=== PATIENT | female | born 1960 | race Caucasian/White ===

== ENCOUNTER → 2017-05-12 | Outpatient (CLI) | payer OTHER ==
[~2017-05-12] MED LIST: ACET-1138 PO; ACET-24 PO; ALBUAER2 INH; AMX500 PO; ASCO10003 PO; CHOL1000 PO; CINN500T PO; CLOB-65 EXT; CLR10 PO; FLUT0.15 NAE; GEMF600T3 PO; GLYB5TAB8 PO; LEVO100T PO; LISI-725 PO; METF1000 PO; MULT-506 PO; OMEG5CAP PO; ONDA8TAB12 PO; OXYSR10 PO; PRAV10TA39 PO; RXC5 PO; XRL10 PO
== END | disposition home or self-care (01) ==
LOC: C.LAB 13:52
PROVIDERS: ATTEND Orthopaedic Surgery Sports Medicine
DX: Z22.322 Carrier or suspected carrier of Methicillin resistant Staphylococcus aureus (principal)

== ENCOUNTER → 2017-05-19 | Outpatient (CLI) | payer OTHER | END | disposition home or self-care (01) | LOC: C.LAB 11:15 | PROVIDERS: ATTEND Orthopaedic Surgery Sports Medicine | DX: Z22.322 Carrier or suspected carrier of Methicillin resistant Staphylococcus aureus (principal) ==

== ENCOUNTER 2017-06-22 06:57 | Inpatient (IN) | payer OTHER ==
[2017-05-06 14:16] VITALS: BMI 58.0
--- NOTE | 2017-05-06 14:51 | PAT Medication Instructions ---
Service Date May 06, 2017. Current Home Medication List Acetaminophen (Tylenol Extra Strength), 1,000 MG PO Q8 Albuterol (Ventolin Hfa), 2 PUFFS INH Q4 PRN for SOB/Wheezing Ascorbic Acid (Vitamin C), 1,000 MG PO QAM Cholecalciferol (Vitamin D3), 1 TAB PO BID Cinnamon (Cinnamon), 1,000 MG PO BID Clobetasol Propionate 0.05% (Temovate 0.05%), 1 APPLN EXT UD PRN for PRN Fluticasone Propionate (Nasal) (Flonase Allergy Relief), 2 SPRAY LUCIUS DAILY PRN for PRN Gemfibrozil (Lopid), 600 MG PO BID Glyburide (Micronase), 5 MG PO QPM Levothyroxine Sodium (Synthroid), 100 MCG PO QAM Lisinopril (Zestril), 20 MG PO HS Metformin Hcl (Glucophage), 1,000 MG PO BIDM Multivitamin (Multivitamin), 1 TAB PO QPM Pravastatin Sodium (Pravastatin Sodium), 10 MG PO HS Medication Instructions For Your Scheduled Surgery - Hold the following medications 2 weeks prior to surgery: Fish Oil Cinnamon (Cinnamon), 1,000 MG PO BID - Hold the following medications 48 hours prior to surgery: Metformin Hcl (Glucophage), 1,000 MG PO BIDM - Hold the following medications 24 hours prior to surgery: Lisinopril (Zestril), 20 MG PO HS Gemfibrozil (Lopid), 600 MG PO BID Clobetasol Propionate 0.05% (Temovate 0.05%), 1 APPLN EXT UD PRN for PRN - Hold the following medications the morning of surgery: Cholecalciferol (Vitamin D3), 1 TAB PO BID Ascorbic Acid (Vitamin C), 1,000 MG PO QAM - Take the following medications the morning of surgery with a sip of water OTHERWISE NOTHING TO EAT OR DRINK AFTER MIDNIGHT: Levothyroxine Sodium (Synthroid), 100 MCG PO QAM Fluticasone Propionate (Nasal) (Flonase Allergy Relief), 2 SPRAY LUCIUS DAILY PRN for PRN Acetaminophen (Tylenol Extra Strength), 1,000 MG PO Q8 (may take if needed up to 4 hours prior to surgery) Albuterol (Ventolin Hfa), 2 PUFFS INH Q4 PRN for SOB/Wheezing (use if needed; BRING TO HOSPITAL) - Take the following medications as scheduled the night before surgery: Multivitamin (Multivitamin), 1 TAB PO QPM Pravastatin Sodium (Pravastatin Sodium), 10 MG PO HS Glyburide (Micronase), 5 MG PO QPM Fluticasone Propionate (Nasal) (Flonase Allergy Relief), 2 SPRAY LUCIUS DAILY PRN for PRN Acetaminophen (Tylenol Extra Strength), 1,000 MG PO Q8 Cholecalciferol (Vitamin D3), 1 TAB PO BID Albuterol (Ventolin Hfa), 2 PUFFS INH Q4 PRN for SOB/Wheezing If you have any questions please call us at [phone] or [phone] or [phone]
--- NOTE | 2017-05-06 15:32 | DIAGNOSTIC IMAGING REPORT ---
CHEST PREADMISSION(PA/LAT) CLINICAL HISTORY: PAT preoperative evaluation COMPARISON STUDY: 02/13/2016 FINDINGS: The bones soft tissues and hemidiaphragms are normal. The cardiomediastinal silhouette is normal. The lungs are clear. The pulmonary vasculature is normal. IMPRESSION: Negative chest. Electronically signed by: Isak Villegas M.D. 05/06/2017 3:30 PM Dictated Date/Time: 05/06/2017 3:29 PM
[2017-05-06 16:01] LABS: BASO % 0.8 %; BASO ABS # 0.04 K/uL (0-0.2); COMPLETE YES; EOS % 5.7 %; HEMATOCRIT 35.7 % (37-47); LYMPH % 23.3 %; LYMPH ABS # 1.23 K/uL (1.2-3.4); MEAN CELL VOLUME 89.7 fL (80-100); MEAN CORPUSCULAR HEMOGLOBIN 28.6 pg (25-34); MEAN CORPUSCULAR HGB CONC 31.9 g/dl (32-36); MEAN PLATELET VOLUME 10.6 fL (7.4-10.4); MONO % 6.1 %; NEUT % 64.1 %; PLATELET COUNT 361 K/uL (130-400); RED BLOOD COUNT 3.98 M/uL (4.2-5.4); WHITE BLOOD COUNT 5.27 K/uL (4.8-10.8)
[2017-05-06 16:02] LABS: URINE APPEARANCE CLEAR (CLEAR); URINE BILIRUBIN NEG (NEG); URINE COLOR YELLOW; URINE SPECIFIC GRAVITY 1.022 (1.000-1.030); ZZUR CULT IF INDIC CLEAN CATCH NO
[2017-05-06 16:03] LABS: URINE NITRITE NEG (NEG); UROBILINOGEN NEG (NEG)
[2017-05-06 16:05] LABS: MANUAL MICROSCOPIC REQUIRED? NO; REVIEW REQ? NO
[2017-05-06 16:12] LABS: PARTIAL THROMBOPLASTIN RATIO 1.1; PROTHROMBIN TIME (PATIENT) 10.2 SECONDS (9.0-12.0)
[2017-05-06 16:27] LABS: BUN/CREATININE RATIO 23.4 (10-20); CREATININE 1.3 mg/dl (0.60-1.20); POTASSIUM 5.1 mmol/L (3.5-5.1)
[2017-05-06 17:00] LABS: CALCIUM 9.5 mg/dl (8.5-10.1)
[2017-05-07 07:31] LABS: ESTIMATED AVERAGE GLUCOSE 200 mg/dl; HA1C FLAG Normal (Normal)
--- NOTE | 2017-06-21 18:34 | HISTORY & PHYSICAL EXAMINATION ---
DATE OF ADMISSION: 06/22/2017 CHIEF COMPLAINT: Chronic left knee pain. HISTORY OF PRESENT ILLNESS: This is a 56-year-old female patient of Dr. Dixon and complaining of chronic left knee pain, longstanding, now progressively getting worse. The patient has been diagnosed with end-stage osteoarthritis per clinical and radiographic exams. The patient has failed conservative treatment including anti-inflammatories, intra-articular injections and the use of a cane. The patient has increased pain with weightbearing activities and her pain does interfere with her activities of daily living. PAST MEDICAL HISTORY: Hypertension, hypercholesterolemia, asthma, diabetes, hypothyroidism, osteoarthritis, spine problems, obesity. SOCIAL HISTORY: Nonsmoker, nondrinker. PAST SURGICAL HISTORY: Total knee replacement on the right. FAMILY HISTORY: Noncontributory. REVIEW OF SYSTEMS: The patient complains of chronic left knee pain, otherwise denies any shortness of breath, chest pain, nausea, vomiting or any other joint complaints. MEDICATIONS: Include: 1. Metformin 1000 mg b.i.d. 2. Levothyroxine 100 mcg daily. 3. Gemfibrozil 600 mg twice daily. 4. Glyburide 5 mg with breakfast. 5. Lisinopril 20 mg daily. 6. Pravastatin 20 mg daily. 7. Albuterol inhaler as needed. 8. Fluticasone 50 mcg ACT nasal inhaler 2 sprays in each nostril as needed. 9. Vitamin D3. 10. Vitamin C. PHYSICAL EXAMINATION: GENERAL: Well-developed, well-nourished 56-year-old female in no acute distress. She is alert and oriented x3 and pleasant. HEENT: Normocephalic, atraumatic. Extraocular motions are intact. Pupils are equal and reactive to light. HEART: Regular rate and rhythm, no murmurs appreciated. LUNGS: Clear. ABDOMEN: Soft and nontender. EXTREMITIES: Left knee reveals a range of motion of 0-115 degrees with medial joint line tenderness. She has a valgus deformity with crepitation with passive range of motion. She has 5/5 strength. NEUROLOGIC: Neurovascularly, she is intact in her left lower extremity. DIAGNOSES: Left knee end-stage osteoarthritis, hypertension, hypercholesterolemia, asthma, diabetes mellitus, hypothyroidism, osteoarthritis, obesity. PLAN: The patient was advised of her diagnosis. Indications, risks, benefits, and postop course have all been reviewed. The patient wishes to proceed with a left total knee arthroplasty. Necessary consent forms, preoperative testing and clearances will be obtained. SAMMIE
[2017-06-22] VITALS (9 sets, daily range): BP systolic 111–155; BP diastolic 62–105; PULSE 77–89; TEMP 36.4–36.8; O2SAT 92–97; Ht 165.1 cm; Wt 158.3 kg
[~2017-06-22] VITALS: Ht 165.1 cm; Wt 158.3 kg
[2017-06-22] MEDS: TRANEXAMIC ACID INJ 1,000 MG in SODIUM CHLORIDE 0.9% 100ML 100 ML IV SCH ×2 (06:30→09:12)
[~2017-06-22 06:57] MED LIST changes: -ACET-24 PO; +ACETAMINOPHEN 500 MG TAB PO SCH; -AMX500 PO; +CEFAZOLIN 3000 MG/65 ML D5W 65 ML IV SCH; -CLR10 PO; +FAMOTIDINE 20 MG TAB PO SCH; +GABAPENTIN 300 MG CAP PO SCH; +LACTATED RINGER'S 1000ML 1,000 ML IV SCH; +LACTATED RINGER'S 1000ML IV SCH; +METOCLOPRAMIDE HCL 10 MG TAB PO SCH; -OMEG5CAP PO; -ONDA8TAB12 PO; -OXYSR10 PO; +ROPIVACAINE 5MG/ML 30 ML 150 MG, BUPIVACAINE/EPINEPHR 0.5% MPF 30 ML, KETAMINE HCL INJ ... INFIL SCH; -RXC5 PO; +TRANEXAMIC ACID INJ 1,000 MG in SODIUM CHLORIDE 0.9% 100ML 100 ML IV SCH; -XRL10 PO
[2017-06-22] MEDS ORDERED: BUPIVACAINE 0.5 % 5 MG/1 ML PF 10ML VIAL ONE (06:59)
[2017-06-22] MEDS ORDERED: BUPIVACAINE 0.25% 30 ML VIAL ONE (06:59)
[2017-06-22] MEDS ORDERED: ATROPINE SULFATE 0.1 MG/ML 5ML SYR IV PRN (08:00)
[2017-06-22] MEDS ORDERED: EpHEDrine SULFATE INJ 50 MG/ML AMP IV PRN (08:00)
[2017-06-22] MEDS ORDERED: ONDANSETRON INJ 2 MG/ML 2 ML VIAL IV PRN ×2 (08:00→12:00)
--- NOTE | 2017-06-22 08:39 | History & Physical Bridge Note ---
H&P Re-Evaluation Bridge Note: I have examined the patient, reviewed the History & Physical and in the interval since the performance of the History & Physical I have noted the following changes of clinical significance: No changes noted
[2017-06-22] MEDS ORDERED: MIDAZOLAM HCL 1 MG/ML 2ML VIAL ONE ×2 (08:50→11:41)
[2017-06-22] MEDS ORDERED: FENTANYL CITRATE INJ 50 MCG/1 ML 2 ML VIAL ONE ×3 (08:50→12:30)
[2017-06-22] MEDS ORDERED: BACITRACIN 50000 UNIT VIAL ONE (09:05)
[2017-06-22] MEDS ORDERED: ORTHO JOINT ANESTHETIC ONE (09:05)
[2017-06-22] MEDS ORDERED: POVIDONE-IODINE OP SOLN 30 ML BTL ONE (09:05)
[2017-06-22] MEDS ORDERED: PHENYLEPHRINE 100MCG/ML 5ML SYR ONE (10:33)
[2017-06-22] MEDS ORDERED: PROPOFOL IV EMULSION 10 MG/ML 20 ML VIAL IV ONE (10:33)
--- NOTE | 2017-06-22 11:36 | [facility] Post Operative Brief Note ---
Immediate Operative Summary Operative Date Jun 22, 2017. Pre-Operative Diagnosis Left knee end-stage osteoarthritis,morbid obesity Post-Operative Diagnosis Left knee end-stage osteoarthritis,morbid obesity Procedure(s) Performed Left total knee arthroplasty Surgeon Dr. 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 Left knee bone and tissue
[2017-06-22] MEDS ORDERED: ZOLPIDEM TARTRATE 5 MG TAB PO PRN (12:00)
[2017-06-22] MEDS ORDERED: BISACODYL 10 MG SUPP PR PRN (12:00)
[2017-06-22] MEDS ORDERED: MoRPHine SULFATE 2 MG/ML CARP IV PRN (12:00)
[2017-06-22] MEDS ORDERED: TRAMADOL HCL 50 MG TAB PO PRN (12:00)
[2017-06-22] MEDS ORDERED: ALBUTEROL HFA 8 GM INHALER INH PRN (12:00)
[2017-06-22] MEDS ORDERED: SOD PHOSPHATE/SOD BIPHOSPHATE ENEMA 132 ML BTL PR PRN (12:00)
[2017-06-22] MEDS ORDERED: MAGNESIUM HYDROXIDE SUSP 30 ML UDC PO PRN (12:00)
[2017-06-22] MEDS ORDERED: FLUTICASONE PROPIONATE NA SPR 16 GM BTL NAE PRN (12:00)
[2017-06-22] MEDS ORDERED: HYDROmorphone INJ 1 MG/ML SYR ONE (12:29)
[2017-06-22] MEDS ORDERED: HYDROmorphone INJ 1 MG/ML SYR IV PRN (12:30)
[2017-06-22] MEDS: FENTANYL CITRATE INJ 50 MCG/1 ML 2 ML VIAL IV PRN ×3 (12:32→12:42)
--- NOTE | 2017-06-22 12:47 | DIAGNOSTIC IMAGING REPORT ---
TWO VIEWS LEFT KNEE CLINICAL HISTORY: Postoperative examination. FINDINGS: AP and crosstable lateral portable views of the left knee are obtained. A left knee arthroplasty is in near anatomic alignment. There has been undersurface remodeling of the patella. No acute fracture is seen. There are expected postoperative changes around the knee including a surgical drain, soft tissue edema, and subcutaneous gas. IMPRESSION: Expected postoperative changes status post left knee arthroplasty. No acute fracture is seen. Electronically signed by: Solomon Rosado M.D. 06/22/2017 12:46 PM Dictated Date/Time: 06/22/2017 12:46 PM
[2017-06-22] MEDS ORDERED: MoRPHine SULFATE 4 MG/ML 1 ML CARP\\VIAL IV PRN (13:15)
[2017-06-22] MEDS ORDERED: CLOBETASOL PROPIONATE 0.05% OINT 15 GM TUBE EXT PRN (13:45)
--- NOTE | 2017-06-22 13:55 | Anesthesiology Progress Note ---
Anesthesia Post Op Note Date & Time Jun 22, 2017 at 13:54 Vital Signs Pain Intensity: 6.0 Vital Signs Past 12 Hours Date Time Temp Pulse Resp B/P (MAP) Pulse Ox O2 Delivery O2 Flow Rate FiO2 06/22/17 13:20 Nasal Cannula 2.0 06/22/17 13:20 36.5 87 16 137/86 (103) 96 Nasal Cannula 2.0 06/22/17 13:20 Room Air 06/22/17 12:51 136/91 06/22/17 12:48 76 13 06/22/17 12:48 75 13 96 06/22/17 12:48 36.4 85 20 136/91 95 Nasal Cannula 3 06/22/17 12:46 139/88 06/22/17 12:43 79 15 93 06/22/17 12:43 85 14 91 06/22/17 12:41 139/92 06/22/17 12:37 80 14 95 06/22/17 12:37 80 11 92 06/22/17 12:37 80 14 95 06/22/17 12:37 80 11 92 06/22/17 12:36 133/97 06/22/17 12:36 133/97 06/22/17 12:32 79 19 143/94 96 06/22/17 12:32 79 19 143/94 96 06/22/17 12:32 80 19 06/22/17 12:32 80 19 06/22/17 12:30 79 17 133/74 92 Nasal Cannula 2 06/22/17 12:20 80 18 134/94 95 Nasal Cannula 2 06/22/17 12:10 81 20 137/84 95 Mask 10 06/22/17 12:02 36.1 85 16 140/90 99 Mask 10 06/22/17 07:38 36.5 77 20 155/105 96 Room Air Notes Mental Status: alert / awake / arousable, participated in evaluation Pt Amnestic to Procedure: Yes Nausea / Vomiting: adequately controlled Pain: adequately controlled Airway Patency, RR, SpO2: stable & adequate BP & HR: stable & adequate Hydration State: stable & adequate Neuraxial Anesthesia: was administered, sensory block is resolving Anesthetic Complications: no major complications apparent
[2017-06-22] MEDS ORDERED: GLUCOSE 40% GEL 15 GM TUBE PO PRN (14:15)
[2017-06-22] MEDS ORDERED: DEXTROSE 50% 50 ML SYR IV PRN (14:15)
[2017-06-22] MEDS ORDERED: GLUCAGON FOR INJ 1 MG VIAL SQ PRN (14:15)
[2017-06-22] MEDS ORDERED: GLUCOSE 10 TABS/TUBE PO PRN (14:15)
[2017-06-22] MEDS: SODIUM CHLORIDE 0.9% 1000ML 1,000 ML IV SCH ×2 (14:18→21:55)
[2017-06-22] MEDS: ACETAMINOPHEN 500 MG TAB PO SCH ×2 (14:23→21:54)
[2017-06-22] MEDS ORDERED: CLR10 PO (14:45)
[2017-06-22] MEDS ORDERED: AMX500 PO (14:45)
[2017-06-22] MEDS ORDERED: OMEG5CAP PO (14:45)
--- NOTE | 2017-06-22 15:01 | Medical Consult ---
Consultation Date of Consultation: Jun 22, 2017. Attending Physician: Paul Dixon M.D. Reason for Consultation: postop medical management History of Present Illness Patient seen and examined. States she is feeling "woozy". [place] mild nausea when she moved too quickly, but it resolved. Pain level is 4/10. She has voided after surgery. Denies fever, chills, chest pain, SOB, cough, vomiting, change in bowel or bladder movements. Last BM was yesterday. States she becomes constipated easily with opioids. No hx of VTE. Recently treated with 2 courses doxycycline for left groin abscess which caused her surgery to be delayed. Abscess is now healed. Past Medical/Surgical History Medical Problems: (1) CKD (chronic kidney disease), stage II Status: Chronic (2) Diabetes mellitus type 2 in obese Status: Chronic (3) Dyslipidemia Status: Chronic (4) History of MRSA infection Status: Chronic (5) HTN (hypertension) Status: Chronic (6) Hypothyroidism Status: Chronic (7) Venous stasis dermatitis Status: Chronic (8) Vitamin D deficiency Status: Chronic Surgical Problems: (1) Status post total knee replacement, right Status: Chronic Family History FH: CAD (coronary artery disease) FATHER (CABG age 51) Hypertension FATHER Social History Smoking Status: Never Smoker Alcohol Use: occasionally Marital Status: Housing Status: lives with significant other Allergies Coded Allergies: Adhesives (Verified Allergy, Unknown, SENSITIVITY, RASH, 06/22/17) Dust (Verified Allergy, Unknown, HAY FEVER, 06/22/17) Grass (Verified Allergy, Unknown, HAY FEVER, 06/22/17) Latex1 -Allergic Contact Dermititis (Verified Allergy, Unknown, RASH, 06/22) Nickel (Verified Allergy, Unknown, SENSITIVITY, RASH, 06/22/17) POLLEN (Verified Allergy, Unknown, HAY FEVER, 06/22/17) Codeine (Verified Adverse Reaction, Mild, HALLUCINATIONS, 06/22/17) Home Medications Active Tylenol Extra Strength (Acetaminophen) 500 Mg Tab 1,000 Mg PO Q8 14 Days Reported Claritin (Loratadine) 10 Mg Tab 10 Mg PO DAILY PRN Fish Oil 1200 mg ([place]-3 Fatty Acids) 1 Cap Cap 1 Cap PO DAILY Amoxicillin 500 Mg Cap 4 Cap PO UD PRN 4 caps PO 1 hour before dental procedures Cinnamon 500 Mg Tab 1,000 Mg PO BID Ventolin Hfa (Albuterol) Aers 2 Puffs INH Q4 PRN Temovate 0.05% (Clobetasol Propionate) Cr 1 Appln EXT UD PRN Vitamin D3 (Cholecalciferol) 1,000 Unit Tab 3 Tab PO DAILY 90 Days Flonase Allergy Relief (Fluticasone Propionate (Nasal)) 50 Mcg/Act Spr 2 [place] LUCIUS DAILY PRN Synthroid (Levothyroxine Sodium) 100 Mcg Tab 100 Mcg PO QAM Multivitamin (Multivitamins) Tab 1 Tab PO QPM Vitamin C (Ascorbic Acid) 1,000 Mg Tab 1,000 Mg PO QAM Pravastatin Sodium 10 Mg Tab 10 Mg PO HS Micronase (Glyburide) 5 Mg Tab 5 Mg PO QPM Lopid (Gemfibrozil) 600 Mg Tab 600 Mg PO BID TAKE 30 MINUTES BEFORE MORNING AND EVENING MEAL. Glucophage (Metformin Hcl) 1,000 Mg Tab 1,000 Mg PO BIDM Zestril (Lisinopril) 20 Mg Tab 20 Mg PO HS Current Inpatient Medications Current Inpatient Medications Medications (Trade) Dose Ordered Sig/Dania Route Start Time Stop Time Status Last Admin Dose Admin Lactated Ringer's 1,000 ml @ 60 mls/hr [id number] IV 06/22/17 06:00 06/22/17 22:39 Cefazolin Sodium 65 ml @ 100 mls/hr PREOP IV 06/22/17 06:00 06/22/17 18:00 06/22/17 09:35 100 MLS/HR Acetaminophen (Tylenol Tab) 1,000 mg PREOP PO 06/22/17 06:00 06/22/17 18:00 06/22/17 07:53 1,000 MG Famotidine (Pepcid Tab) 20 mg PREOP PO 06/22/17 06:00 06/22/17 18:00 06/22/17 07:53 20 MG Gabapentin (Neurontin Cap) 900 mg PREOP PO 06/22/17 06:00 06/22/17 18:00 06/22/17 07:53 900 MG Metoclopramide HCl (Reglan Tab) 10 mg PREOP PO 06/22/17 06:00 06/22/17 18:00 06/22/17 07:52 10 MG Tranexamic Acid 1000 mg/Sodium Chloride 110 ml @ 660 mls/hr TODAY@06,0630 IV 06/22/17 06:00 06/22/17 18:00 06/22/17 09:12 660 MLS/HR Lactated Ringer's 1,000 ml @ 15 mls/hr Q24H IV 06/22/17 06:00 06/23/17 05:59 06/22/17 07:54 15 MLS/HR Albuterol (Ventolin Hfa Inhaler) 2 puffs Q4 PRN INH 06/22/17 12:00 07/22/17 11:59 Cholecalciferol (Vitamin D Tab) 1,000 inter.unit BID PO 06/22/17 21:00 07/22/17 20:59 Fluticasone Propionate (Flonase Nasal [place]) 2 sprays DAILY PRN LUCIUS 06/22/17 12:00 07/22/17 11:59 Gemfibrozil (Lopid Tab) 600 mg BID PO 06/22/17 21:00 07/22/17 20:59 Levothyroxine Sodium (Synthroid Tab) 100 mcg DAILYBB PO 06/23/17 06:00 07/23/17 05:59 Lisinopril (Zestril Tab) 20 mg HS PO 06/22/17 21:00 07/22/17 20:59 Pravastatin Sodium (Pravachol Tab) 10 mg HS PO 06/22/17 21:00 07/22/17 20:59 Ascorbic Acid (Vitamin C Tab) 1,000 mg QAM PO 06/23/17 09:00 07/23/17 08:59 Future Hold Clobetasol Propionate (Clobetasol Propionate Oint) 1 appln DAILY PRN EXT 06/22/17 13:45 07/22/17 13:44 Sodium Chloride 1,000 ml @ 100 mls/hr Q10H IV 06/22/17 12:00 06/23/17 11:59 06/22/17 14:18 100 MLS/HR Cefazolin Sodium 2000 mg/Dextrose 60 ml @ 100 mls/hr Q8H IV 06/22/17 18:00 06/23/17 02:35 Oxycodone HCl (Roxicodone Immediate Rel Tab) 1 TABLET FOR PAIN RATING... Q4H PRN PO 06/22/17 12:00 07/06/17 11:59 Oxycodone HCl (Oxycontin Tab) 10 mg Q12 PO 06/22/17 21:00 07/06/17 20:59 Morphine Sulfate (MoRPHine SULFATE INJ) 2 mg Q2H PRN IV 06/22/17 12:00 07/06/17 11:59 Acetaminophen (Tylenol Tab) 1,000 mg Q8 PO 06/22/17 14:00 07/22/17 13:59 06/22/17 14:23 1,000 MG Magnesium Hydroxide (Milk Of Magnesia Susp) 30 ml Q6H PRN PO 06/22/17 12:00 07/22/17 11:59 Bisacodyl (Dulcolax Supp) 10 mg DAILY PRN NV 06/22/17 12:00 07/22/17 11:59 Sodium Biphosphate/ Sodium Phosphate (Fleet Enema) 132 ml DAILY PRN NV 06/22/17 12:00 07/22/17 11:59 Docusate Sodium (coLACE CAP) 100 mg BID PO 06/22/17 21:00 07/22/17 20:59 Diphenhydramine HCl (Benadryl Cap) 25 mg Q8H PRN PO 06/22/17 12:00 07/22/17 11:59 Zolpidem Tartrate (Ambien Tab) 5 mg HSZ PRN PO 06/22/17 12:00 07/22/17 11:59 Multivitamins (Multivitamin Tab) 1 tab QAM PO 06/23/17 09:00 07/23/17 08:59 Ondansetron HCl (Zofran Inj) 4 mg Q6H PRN IV 06/22/17 12:00 07/22/17 11:59 Pantoprazole Sodium (Protonix Tab) 40 mg QAM PO 06/23/17 09:00 07/23/17 08:59 Tramadol HCl (Ultram Tab) 1 tablet for pain rating... Q4H PRN PO 06/22/17 12:00 07/22/17 11:59 Rivaroxaban (Xarelto Tab) 10 mg Q24H PO 06/22/17 21:00 07/04/17 20:59 Fentanyl Citrate (Fentanyl Inj) 25 mcg Q5M PRN IV 06/22/17 12:30 06/22/17 17:30 06/22/17 12:42 25 MCG Hydromorphone HCl (Dilaudid Inj) 0.25 mg Q5M PRN IV 06/22/17 12:30 06/22/17 17:30 Morphine Sulfate (MoRPHine SULFATE INJ) 4 mg Q2H PRN IV 06/22/17 13:15 07/06/17 13:14 Insulin Aspart (novoLOG ASPART) SLIDING SCALE If C... ACHS SC 06/22/17 17:15 07/22/17 17:14 Glucose (Glucose 40% Gel) 15-30 GRAMS 15 GRAMS... UD PRN PO 06/22/17 14:15 07/22/17 14:14 Glucose (Glucose Chew Tab) 4-8 Tablets 4 Tabl... UD PRN PO 06/22/17 14:15 07/22/17 14:14 Dextrose (Dextrose 50% 50ML Syringe) 25-50ML OF 50% DW IV FOR... UD PRN IV 06/22/17 14:15 07/22/17 14:14 Glucagon (Glucagon Inj) 1 mg UD PRN SQ 06/22/17 14:15 07/22/17 14:14 Polyethylene (Miralax Powder Packet) 17 gm DAILY PO 06/23/17 09:00 07/23/17 08:59 Review of Systems Ten systems reviewed and negative except as noted in HPI. Physical Exam Date Time Temp Pulse Resp B/P (MAP) Pulse Ox O2 Delivery O2 Flow Rate FiO2 06/22/17 14:30 84 16 153/84 (107) 06/22/17 13:50 85 16 111/62 (78) 96 Nasal Cannula 2.0 06/22/17 13:20 Nasal Cannula 2.0 06/22/17 13:20 36.5 87 16 137/86 (103) 96 Nasal Cannula 2.0 06/22/17 13:20 Room Air 06/22/17 12:51 136/91 06/22/17 12:48 76 13 06/22/17 12:48 75 13 96 06/22/17 12:48 36.4 85 20 136/91 95 Nasal Cannula 3 06/22/17 12:46 139/88 06/22/17 12:43 79 15 93 06/22/17 12:43 85 14 91 06/22/17 12:41 139/92 06/22/17 12:37 80 14 95 06/22/17 12:37 80 11 92 06/22/17 12:37 80 14 95 06/22/17 12:37 80 11 92 06/22/17 12:36 133/97 06/22/17 12:36 133/97 06/22/17 12:32 79 19 143/94 96 06/22/17 12:32 79 19 143/94 96 06/22/17 12:32 80 19 06/22/17 12:32 80 19 06/22/17 12:30 79 17 133/74 92 Nasal Cannula 2 06/22/17 12:20 80 18 134/94 95 Nasal Cannula 2 06/22/17 12:10 81 20 137/84 95 Mask 10 06/22/17 12:02 36.1 85 16 140/90 99 Mask 10 06/22/17 07:38 36.5 77 20 155/105 96 Room Air General Appearance: no apparent distress, + obese, + pertinent finding ( pleasant alert morbidly obese 56 y/o female, at bedside) Head: normocephalic, atraumatic Eyes: normal inspection, sclerae normal ENT: hearing grossly normal Neck: supple, trachea midline Respiratory/Chest: lungs clear, normal breath sounds, no respiratory distress, no accessory muscle use Cardiovascular: regular rate, rhythm, no murmur Abdomen/GI: normal bowel sounds, non tender, soft Extremities/Musculoskelatal: no calf tenderness, no pedal edema, + pertinent finding (s/p left TKA with dressing in place. hemovac in place with sanguinous drainage. ) Neurologic/Psych: alert, normal mood/affect, oriented x 3 Skin: normal color, warm/dry Laboratory Results Last 24 Hours Test 06/22/17 07:37 06/22/17 07:40 06/22/17 12:14 06/22/17 13:28 Bedside Glucose 127 mg/dl 163 mg/dl 175 mg/dl Assessment & Plan S/P LEFT TKA POD #[address] Dixon Pain control, wound care, activity per ortho Added Miralax to bowel regimen Continue incentive spirometry Monitor daily H/H for sign of blood loss anemia DM TYPE 2 Hold metformin and glyburide Novolog sliding scale coverage HYPERTENSION BP is stable Continue lisinopril HYPOTHYROIDISM Continue levothyroxine DYSLIPIDEMIA Continue pravastatin and gemfibrozil DVT PROPHYLAXIS Per ortho DISPOSITION Per ortho Patient seen in collaboration with Dr. Catalina Shell. Please see her addendum.
--- NOTE | 2017-06-22 16:21 | [facility] Operative Report ---
Operative Report Operative Date Jun 22, 2017. Pre-Operative Diagnosis Left knee end-stage osteoarthritis,morbid obesity Post-Operative Diagnosis same Procedure(s) Performed Left total knee arthroplasty, increased difficulty due to morbid obesity, lateral release. 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 Specimens A. Left knee bone and tissue Drains 2 Hemovac Anesthesia spinal, regional block,orthomix Complication(s) None Disposition Recovery Room / PACU Indications Severe end-stage patellofemoral degenerative arthritis left knee, status post successful right knee replacement Description of Procedure The patient was taken to the operating room and anesthetized under spinal anesthesia and sedation. Patient was placed supine on the the operating table. A pneumatic tourniquet was placed about the left upper thigh. The knee exam demonstrated a very obese upper thigh and obese leg a valgus knee with a significant laterally lying patella [id number] crepitation patellofemoral joint. An anterior longitudinal incision was made across the knee. Patient had deeper than typical fat tissues over the anterior knee. Some things bleeders were cauterized. Patient had thickened scarred prepatellar bursa that was resected. Skin flaps were elevated. An incision was made into the medial retinaculum and extended up into the mid third of the quadriceps tendon and extended down to the tibial tubercle. Intra-articular findings demonstrated the medial femoral condyle had a 2 cm rounded osteochondral lesion possible and OCD. It was loose in its base which was sclerotic. The cruciate ligaments were still intact. Lateral compartment had grade 3 DJD. Patellofemoral joint was advanced grade 4 DJD some bone loss lateral facet of the patella with large osteophytes on both the patella and trochlear groove area with flattening out of the trochlear groove area and patella instability laterally.. The knee was exposed by excising cruciate ligaments and menisci. The infrapatellar fat pad was resected. The fat pad over the anterior femur at the upper aspect of the articular surface was resected for placement of the component in that area. A subperiosteal peel lateral release was performed around the patella. The Mccarty and nephew journey 2.0 total knee arthroplasty system was utilized for the procedure. MRI preoperative templating was performed. The custom femoral cutting guide was pinned in position. The distal femoral cut was made. The size 4, 5 in 1 cutting block was placed. The anterior posterior and chamfer cuts were made. The knee was extended and a free hand cut technique was performed to the patella. The patella with was measured and the width was reproduced using a 32 mm patella component. 3 drill holes are made for the patella component pegs. The tibia was then subluxed. The custom tibial cutting block was pinned in position and the proximal tibial cut was made with the oscillating saw. The size 4 tibial trial was externally rotated in line with the tibial tubercle and pinned in position. The punch for the stem was used and the collet was placed. Tibial trials were used for the insert. The size 13 trial gave balanced ligaments through full range of motion. Patella tracking was assessed with range of motion. The patella still tracked laterally so a formal lateral release was performed leaving the synovium intact. The patella tracked centrally. The trials were removed. The Orthomix anesthetic cocktail was injected per protocol. The cut bone surfaces and soft tissue were copiously irrigated with antibiotic solution with bacitracin. The final components were cemented with Simplex cement. The final components were 4 Oxinium Mccarty & Nephew 2.0 left posterior stabilized femoral component, size 4 tibial baseplate, 13 posterior stabilized high flex polyethylene insert, 32 mm patella.. While the cement cured the Betadine soak was used per protocol. When the cement cured the knee was copiously irrigated with pulsatile lavage antibiotic solution with bacitracin. 2 drains were brought out laterally connected to Hemovac. The quadriceps tendon and medial retinaculum were closed with interrupted [id number] #1 Vicryl sutures. The knee was taken through full range of motion and repair was secure. The subcutaneous tissues were closed with 2-0 Vicryl sutures. The skin was closed with nylon sutures due to a nickel allergy. Patient also had an adhesive allergy so we didn't use Steri- Strips. A superficial wound VAC was then applied due to the obesity.. The tourniquet was let down and the patient had good capillary refill to the extremity. The patient tolerated the procedure well. My physician business office assistant Isak WILCOX assisted in the procedure including prepping draping leg positioning soft tissue retraction instrument management and assisted in the closure ,dressings application and will participate in postoperative care the patient. There was increased difficulty throughout the procedure due to the patient's morbid obesity. I attest to the content of the Intraoperative Record and any orders documented therein. Any exceptions are noted below.
[2017-06-22] MEDS: INSULIN ASPART 100 UNITS/ML 3 ML PEN SC SCH ×2 (17:55→21:18)
[2017-06-22] MEDS: CEFAZOLIN IV 2,000 MG in DEXTROSE 5% 50ML 50 ML IV SCH (17:55)
[2017-06-22] MEDS: RIVAROXABAN 10 MG TAB PO SCH (21:10)
[2017-06-22] MEDS: DOCUSATE SODIUM 100 MG CAP PO SCH (21:10)
[2017-06-22] MEDS: GEMFIBROZIL 600 MG TAB PO SCH (21:10)
[2017-06-22] MEDS: LISINOPRIL 20 MG TAB PO SCH (21:10)
[2017-06-22] MEDS: CHOLECALCIFEROL 1000 INTER.UNIT TAB PO SCH (21:10)
[2017-06-22] MEDS: OXYCODONE HCL 10 MG TABCR (OXYCONTIN) PO SCH (21:10)
[2017-06-22] MEDS: PRAVASTATIN SOD 10 MG TAB PO SCH (21:10)
[2017-06-23] MEDS: CEFAZOLIN IV 2,000 MG in DEXTROSE 5% 50ML 50 ML IV SCH (01:36)
[2017-06-23 04:10] VITALS: BP 130/78; PULSE 83; TEMP 36.9; O2SAT 95
[2017-06-23] MEDS: OXYCODONE HCL IR 5 MG TAB (IMMEDIATE RELEASE) PO PRN ×3 (04:27→13:24)
[2017-06-23 05:40] LABS: HEMATOCRIT 33.1 % (37-47); MEAN CELL VOLUME 89.7 fL (80-100); MEAN CORPUSCULAR HEMOGLOBIN 28.5 pg (25-34); MEAN CORPUSCULAR HGB CONC 31.7 g/dl (32-36); MEAN PLATELET VOLUME 10.7 fL (7.4-10.4); PLATELET COUNT 277 K/uL (130-400); RED BLOOD COUNT 3.69 M/uL (4.2-5.4)
[2017-06-23] MEDS: ACETAMINOPHEN 500 MG TAB PO SCH ×3 (06:03→21:34)
[2017-06-23] MEDS: LEVOTHYROXINE 100 MCG TAB PO SCH (06:03)
[2017-06-23 06:09] LABS: BUN/CREATININE RATIO 20.3 (10-20); CALCIUM 8.7 mg/dl (8.5-10.1); CREATININE 1.1 mg/dl (0.60-1.20); POTASSIUM 4.4 mmol/L (3.5-5.1)
[2017-06-23 07:59] VITALS: BP 114/70; PULSE 93; TEMP 36.8; O2SAT 91
[2017-06-23 08:00] VITALS: O2SAT 91
[2017-06-23] MEDS: SODIUM CHLORIDE 0.9% 1000ML 1,000 ML IV SCH (08:10)
--- NOTE | 2017-06-23 08:22 | Orthopedic Progress Note ---
Orthopedic Progress Note Date of Service Jun 23, 2017. Subjective Post OP Day: 1 Reports: feeling well, pain controlled w PO medications, Denies: complaints, chest pain, SOB, nausea / vomiting, light headedness, calf pain Additional Notes: Requesting a box fan for her room. Requesting walker Rx. Objective calves soft nontender, N/V intact, capillary refill less than 2 sec., dressing C /D/I, A&O x3, toes mobile Date Time Temp Pulse Resp B/P (MAP) Pulse Ox O2 Delivery O2 Flow Rate FiO2 06/23/17 08:00 91 Room Air 06/23/17 07:59 36.8 93 16 114/70 (85) 91 Room Air 06/23/17 04:10 36.9 83 16 130/78 (95) 95 Room Air 06/22/17 23:10 36.8 81 16 124/81 (95) 97 Room Air 06/22/17 23:09 Room Air 06/22/17 19:24 36.8 89 18 123/77 (92) 92 Room Air 06/22/17 16:22 36.4 82 18 115/76 (89) 92 Room Air 06/22/17 16:00 Room Air 06/22/17 15:31 36.4 84 19 125/80 (95) 96 Nasal Cannula 2.0 06/22/17 14:53 131/87 (102) 06/22/17 14:30 84 16 153/84 (107) 06/22/17 13:50 85 16 111/62 (78) 96 Nasal Cannula 2.0 06/22/17 13:20 Nasal Cannula 2.0 06/22/17 13:20 36.5 87 16 137/86 (103) 96 Nasal Cannula 2.0 06/22/17 13:20 Room Air 06/22/17 12:51 136/91 06/22/17 12:48 76 13 06/22/17 12:48 75 13 96 06/22/17 12:48 36.4 85 20 136/91 95 Nasal Cannula 3 06/22/17 12:46 139/88 06/22/17 12:43 79 15 93 06/22/17 12:43 85 14 91 06/22/17 12:41 139/92 06/22/17 12:37 80 14 95 06/22/17 12:37 80 11 92 06/22/17 12:37 80 14 95 06/22/17 12:37 80 11 92 06/22/17 12:36 133/97 06/22/17 12:36 133/97 06/22/17 12:32 79 19 143/94 96 06/22/17 12:32 79 19 143/94 96 06/22/17 12:32 80 19 06/22/17 12:32 80 19 06/22/17 12:30 79 17 133/74 92 Nasal Cannula 2 06/22/17 12:20 80 18 134/94 95 Nasal Cannula 2 06/22/17 12:10 81 20 137/84 95 Mask 10 06/22/17 12:02 36.1 85 16 140/90 99 Mask 10 Laboratory Results 24 Hours: Test 06/23/17 05:24 Hematocrit 33.1 % Hemoglobin 10.5 g/dL Assessment & Plan Assessment: POD #1, Left TKA Plan: PT/ OT DVT proph- Xarelto D/C planning- Home w OPPT As per medicine. Inhouse Planning Pain Management: Oxycontin, Morphine, PO Tylenol, Oxy IR DVT Prophylaxis: TEDs, SCDs, Xarelto Discharge Planning Discharge Planning: home with oppt Pain Management: Oxycontin, PO Tylenol, Oxy IR DVT Prophylaxis: TEDs, Xarelto Therapy: Physical Therapy, Occupational Therapy
[2017-06-23] MEDS: DOCUSATE SODIUM 100 MG CAP PO SCH ×2 (08:35→21:35)
[2017-06-23] MEDS: MULTIVITAMIN TAB PO SCH (08:37)
[2017-06-23] MEDS: POLYETHYLENE (MIRALAX) 17 GM PACK PO SCH (08:37)
[2017-06-23] MEDS: CHOLECALCIFEROL 1000 INTER.UNIT TAB PO SCH ×2 (08:38→21:34)
[2017-06-23] MEDS: PANTOprazole SOD 40 MG TAB PO SCH (08:38)
[2017-06-23] MEDS: GEMFIBROZIL 600 MG TAB PO SCH ×2 (08:38→21:35)
[2017-06-23] MEDS: OXYCODONE HCL 10 MG TABCR (OXYCONTIN) PO SCH ×2 (08:40→21:34)
[2017-06-23] MEDS: INSULIN ASPART 100 UNITS/ML 3 ML PEN SC SCH ×4 (08:45→21:00)
[2017-06-23] MEDS ORDERED: ASCORBIC ACID 500 MG TAB PO SCH (09:00)
--- NOTE | 2017-06-23 09:42 | Anesthesiology Progress Note ---
Anesthesia Post Op Note Date & Time Jun 23, 2017 at 09:41 Vital Signs Vital Signs Past 12 Hours Date Time Temp Pulse Resp B/P (MAP) Pulse Ox O2 Delivery O2 Flow Rate FiO2 06/23/17 08:00 91 Room Air 06/23/17 07:59 36.8 93 16 114/70 (85) 91 Room Air 06/23/17 04:10 36.9 83 16 130/78 (95) 95 Room Air 06/22/17 23:10 36.8 81 16 124/81 (95) 97 Room Air 06/22/17 23:09 Room Air Notes Mental Status: alert / awake / arousable, participated in evaluation Pt Amnestic to Procedure: Yes Nausea / Vomiting: adequately controlled Pain: adequately controlled Airway Patency, RR, SpO2: stable & adequate BP & HR: stable & adequate Hydration State: stable & adequate Neuraxial Anesthesia: sensory block resolved Anesthetic Complications: no major complications apparent
[2017-06-23 11:33] VITALS: BP 142/84; PULSE 80; TEMP 36.9; O2SAT 96
[2017-06-23 14:57] VITALS: BP 143/87; PULSE 87; TEMP 37; O2SAT 92
--- NOTE | 2017-06-23 18:04 | Progress Note ---
Internal Med Progress Note Date of Service: Jun 23, 2017. Provider Documentation: SUBJECTIVE: The patient was seen and examined complains of pain at the surgery site Denies any nausea,vomiting , SOB,Palpitation OBJECTIVE: Vital Signs-as noted below Exam: General-No distress at rest Obese Eyes-normal ENT-normal Neck-supple Lungs-Clear to auscultate bilaterally Heart-Regular Abdomen-Benign,no masses,bowel sound present Extremities-No edema Neuro-AAOx3 Lab data as noted below. ASSESSMENT & PLAN: S/P LEFT TKA POD # [address] Dixon Pain control, wound care, activity per ortho Added Miralax to bowel regimen Bowel not moved Continue incentive spirometry HYPERTENSION BP is stable-qt the upper limit Continue lisinopril DM TYPE 2 Hold metformin and glyburide while in the hospital Novolog sliding scale coverage Blood sugar is maintained HYPOTHYROIDISM Continue levothyroxine DYSLIPIDEMIA Continue pravastatin and gemfibrozil DVT PROPHYLAXIS Per ortho DISPOSITION Per ortho Medically stable Vital Signs: Date Time Temp Pulse Resp B/P (MAP) Pulse Ox O2 Delivery O2 Flow Rate FiO2 06/23/17 14:57 37.0 87 16 143/87 (105) 92 Room Air 06/23/17 11:33 36.9 80 20 142/84 (103) 96 Room Air 06/23/17 08:00 Room Air 06/23/17 08:00 91 Room Air 06/23/17 07:59 36.8 93 16 114/70 (85) 91 Room Air 06/23/17 04:10 36.9 83 16 130/78 (95) 95 Room Air 06/22/17 23:10 36.8 81 16 124/81 (95) 97 Room Air 06/22/17 23:09 Room Air 06/22/17 19:24 36.8 89 18 123/77 (92) 92 Room Air Lab Results: Results Past 24 Hours Test 06/22/17 20:56 06/23/17 05:24 06/23/17 08:06 06/23/17 12:02 Range/Units Bedside Glucose 165 162 158 70-90 mg/dl White Blood Count 7.50 4.8-10.8 K/uL Red Blood Count 3.69 4.2-5.4 M/uL Hemoglobin 10.5 12.0-16.0 g/dL Hematocrit 33.1 37-47 % Mean Corpuscular Volume 89.7 80-100 fL Mean Corpuscular Hemoglobin 28.5 25-34 pg Mean Corpuscular Hemoglobin Concent 31.7 32-36 g/dl RDW Standard Deviation 43.5 36.4-46.3 fL RDW Coefficient of Variation 13.3 11.5-14.5 % Platelet Count 277 130-400 K/uL Mean Platelet Volume 10.7 7.4-10.4 fL Sodium Level 139 136-145 mmol/L Potassium Level 4.4 3.5-5.1 mmol/L Chloride Level 107 98-107 mmol/L Carbon Dioxide Level 27 21-32 mmol/L Anion Gap 5.0 3-11 mmol/L Blood Urea Nitrogen 22 7-18 mg/dl Creatinine 1.10 0.60-1.20 mg/dl Est Creatinine Clear Calc Drug Dose 90.0 ml/min Estimated GFR () 65.9 Estimated GFR (Non- 56.9 BUN/Creatinine Ratio 20.3 10-20 Random Glucose 158 70-99 mg/dl Calcium Level 8.7 8.5-10.1 mg/dl Test 06/23/17 17:25 Range/Units Bedside Glucose 209 70-90 mg/dl
[2017-06-23] MEDS: PRAVASTATIN SOD 10 MG TAB PO SCH (21:34)
[2017-06-23] MEDS: RIVAROXABAN 10 MG TAB PO SCH (21:34)
[2017-06-23] MEDS: LISINOPRIL 20 MG TAB PO SCH (21:36)
[2017-06-23 23:25] VITALS: BP 118/79; PULSE 80; TEMP 36.9; O2SAT 96
[2017-06-24 05:44] LABS: HEMATOCRIT 30.3 % (37-47); MEAN CELL VOLUME 89.1 fL (80-100); MEAN CORPUSCULAR HEMOGLOBIN 29.7 pg (25-34); MEAN CORPUSCULAR HGB CONC 33.3 g/dl (32-36); MEAN PLATELET VOLUME 10.5 fL (7.4-10.4); PLATELET COUNT 265 K/uL (130-400); WHITE BLOOD COUNT 6.44 K/uL (4.8-10.8)
[2017-06-24] MEDS: LEVOTHYROXINE 100 MCG TAB PO SCH (05:54)
[2017-06-24] MEDS: ACETAMINOPHEN 500 MG TAB PO SCH ×2 (05:54→13:34)
[2017-06-24 06:12] LABS: BUN/CREATININE RATIO 15.5 (10-20); CALCIUM 8.8 mg/dl (8.5-10.1); CREATININE 1.1 mg/dl (0.60-1.20); POTASSIUM 4.4 mmol/L (3.5-5.1)
--- NOTE | 2017-06-24 07:40 | Orthopedic Progress Note ---
Orthopedic Progress Note Date of Service Jun 24, 2017. Subjective Post OP Day: 2 Reports: feeling well, pain controlled w PO medications, Denies: complaints, chest pain, SOB, nausea / vomiting, light headedness, calf pain Additional Notes: DID not do well in PT yesterday 40 ft with fatigue and poor endurance. Objective calves soft nontender, N/V intact, capillary refill less than 2 sec., dressing C /D/I, A&O x3, toes mobile Prevena in tact and holding suction well. Date Time Temp Pulse Resp B/P (MAP) Pulse Ox O2 Delivery O2 Flow Rate FiO2 06/23/17 23:54 Room Air 06/23/17 23:25 36.9 80 16 118/79 (92) 96 Room Air 06/23/17 15:30 Room Air 06/23/17 14:57 37.0 87 16 143/87 (105) 92 Room Air 06/23/17 11:33 36.9 80 20 142/84 (103) 96 Room Air 06/23/17 08:00 Room Air 06/23/17 08:00 91 Room Air 06/23/17 07:59 36.8 93 16 114/70 (85) 91 Room Air Laboratory Results 24 Hours: Test 06/24/17 05:34 Hematocrit 30.3 % Hemoglobin 10.1 g/dL Assessment & Plan Assessment: POD #2, Left TKA Plan: PT/ OT DVT proph- Xarelto D/C planning- Home w OPPT tentative. As per medicine. Will see how she does in PT today, may need rehab Inhouse Planning Pain Management: Oxycontin, Morphine, PO Tylenol, Oxy IR DVT Prophylaxis: TEDs, SCDs, Xarelto Discharge Planning Discharge Planning: home with oppt Pain Management: Oxycontin, PO Tylenol, Oxy IR DVT Prophylaxis: TEDs, Xarelto Therapy: Physical Therapy, Occupational Therapy
[2017-06-24 07:43] VITALS: BP 122/80; PULSE 86; TEMP 36.8; O2SAT 92
[2017-06-24] MEDS: MULTIVITAMIN TAB PO SCH (08:54)
[2017-06-24] MEDS: OXYCODONE HCL IR 5 MG TAB (IMMEDIATE RELEASE) PO PRN (08:54)
[2017-06-24] MEDS: POLYETHYLENE (MIRALAX) 17 GM PACK PO SCH (08:54)
[2017-06-24] MEDS: GEMFIBROZIL 600 MG TAB PO SCH (08:54)
[2017-06-24] MEDS: OXYCODONE HCL 10 MG TABCR (OXYCONTIN) PO SCH (08:54)
[2017-06-24] MEDS: DOCUSATE SODIUM 100 MG CAP PO SCH (08:54)
[2017-06-24] MEDS: PANTOprazole SOD 40 MG TAB PO SCH (08:54)
[2017-06-24] MEDS: CHOLECALCIFEROL 1000 INTER.UNIT TAB PO SCH (08:54)
[2017-06-24] MEDS: INSULIN ASPART 100 UNITS/ML 3 ML PEN SC SCH ×3 (08:59→18:56)
[2017-06-24 10:19] VITALS: O2SAT 92
[2017-06-24] MEDS ORDERED: ONDA8TAB12 PO (14:53)
[2017-06-24] MEDS ORDERED: RXC5 PO (14:53)
[2017-06-24] MEDS ORDERED: XRL10 PO (14:53)
[2017-06-24] MEDS ORDERED: ACET-24 PO (14:53)
[2017-06-24] MEDS ORDERED: OXYSR10 PO (14:53)
--- NOTE | 2017-06-24 14:56 | Discharge Instructions ---
Discharge Instructions Date of Service Jun 24, 2017. Admission Reason for Admission: Left Knee Osteoarthritis Discharge Discharge Diagnosis / Problem: Left TKA Discharge Goals Goal(s): Improve function Activity Recommendations Activity Limitations: as noted below . Instructions / Follow-Up Instructions / Follow-Up ACTIVITY RECOMMENDATIONS: SELF CARE INSTRUCTIONS AFTER TOTAL KNEE REPLACEMENT A. You may need to continue a physical therapy program after discharge from the hospital. There are several options available to you. Your doctor will assist you in selecting the best one for you. 1. An out-patient facility 2 to 3 times a week for therapy or home therapy. 2. Continue working on all exercises taught to you in the hospital. Your goals should be to increase bending of your knee to 90 degrees and beyond and to fully straighten your knee. B. You may progress at your own pace from walking with a walker or crutches to a cane; then to no assistive devices. C. Make walking a part of your daily routine. Be up as much as comfortable with rest periods throughout the day. Rest with leg elevation is very important. Use the ice wrap frequently for the first 3-4 weeks. D. There are no restrictions on activities. 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 E. Wear the long elastic stockings (GARY hose) 20 hours a day for 2 weeks after surgery. They can be removed several times a day for laundering and for a bath. F. You may shower, no tub baths until cleared by your doctor. SPECIAL CARE INSTRUCTIONS: VERY IMPORTANT TO READ AND REVIEW A. There are a few signs you need to watch for after you are home. Call [facility] if you notice any of the followin. Increased severe knee pain. Some pain is expected especially when you exercise. 2. Increased swelling in your leg or knee; pain or swelling of the calf muscle in either lower leg. 3. Any fluid drainage from the incision. 4. Shortness of breath or chest pain. B. Please call [facility] at if you have any concerns or questions about your operation or recovery. The doctor or his nurse will return your call promptly. C. You must take antibiotics before dental work, bladder, bowel or other surgery. Your doctor will provide you with a permanent care to carry describing this precaution. IMPORTANT: * REMEMBER TO TAKE XARELTO DAILY FOR 4 WEEKS UNLESS OTHERWISE DIRECTED. THIS IS YOUR BLOOD THINNER. * HIGH RISK PATIENTS MAY BE PRESCRIBED A STRONGER BLOOD THINNER. THIS WILL BE PROVIDED AT DISCHARGE. * CALL IF INCREASED PAIN, REDNESS, DRAINAGE OR FEVER GREATER THAT 101. * WEAR GARY HOSE 20 HOURS PER DAY FOR 2 WEEKS. * YOU MAY HAVE A LARGE BAND-AID LIKE DRESSING (SILVERON). THIS WILL REMAIN ON YOUR INCISION FOR 7 DAYS, THEN CAN BE REMOVED. IF INCISION IS LEAKING THROUGH DRESSING, CALL THE OFFICE . FOLLOW UP VISIT: If appointment is not already scheduled: Please call [facility] to make a follow-up appointment for 2 weeks after your surgery at . you have a wound vac on your incision, remove and discard all parts 1 week post op, cover with sterile dressings daily until follow up in office. Current Hospital Diet Patient's current hospital diet: Diabetes Type 2 Diet Discharge Diet Recommended Diet: Diabetes Type 2 Diet Procedures Procedures Performed: Left total knee arthroplasty Pending Studies Studies pending at discharge: no Laboratory Results Hemoglobin A1c Test 05/06/17 14:55 Range/Units Estimated Average Glucose 200 mg/dl Hemoglobin A1c 8.6 H 4.5-5.6 % Medical Emergencies . Who to Call and When: Medical Emergencies: If at any time you feel your situation is an emergency, please call 911 immediately. . Non-Emergent Contact Non-Emergency issues call your: Primary Care Provider . "Provider Documentation" section prepared by Isak Solorio. . VTE Core Measure Inpt VTE Proph given/why not?: Other Anticoagulation (XARELTO), Rossi Reyes, SCD's [place] Drug Monitoring Program Search Results: patient reviewed within database, no issues identified
[2017-06-24 15:20] VITALS: BP 109/68; PULSE 76; TEMP 37.2; O2SAT 96
[2017-06-24 18:42] VITALS: BP 109/68; PULSE 76; TEMP 37.2; O2SAT 96
[2017-06-24] MEDS: RIVAROXABAN 10 MG TAB PO SCH (18:56)
--- NOTE | 2017-07-06 19:43 | DISCHARGE SUMMARY ---
HISTORY OF PRESENT ILLNESS: This is a 56-year-old female patient of Dr. Dixon's complaining of chronic left knee pain, longstanding and progressively getting worse. She failed conservative treatment and had been diagnosed with end-stage osteoarthritis. PAST MEDICAL HISTORY: Hypertension, hypercholesterolemia, asthma, diabetes mellitus, hypothyroidism, osteoarthritis, spine problems and obesity. POSTOPERATIVE COURSE: The patient underwent a left total knee arthroplasty on 06/22/2017. She was followed closely with medical consultation and DVT prophylaxis in the form of Xarelto, med consultation physical therapy and pain control. The patient had a little bit of trouble on physical therapy the first day, went about 40 feet with poor endurance and balance. On postoperative day #2, she did much better. She had 2 sessions of physical therapy; in the afternoon she went 150 feet independently with good balance. Otherwise, she had an uneventful postoperative course. PHYSICAL EXAMINATION: On discharge, the left prevena wound vac was clean, dry and intact. Sutures are intact. Due to her allergy to meli, skin edges approximated well. There was no redness or drainage. She had no calf tenderness. Negative Homans sign. Neurologically and neurovascularly she is intact in her left lower extremity. DIAGNOSES: Status post left total knee arthroplasty with a history of hypertension, hypercholesterolemia, asthma, diabetes mellitus, hypothyroidism, osteoarthritis, spine problems and obesity. PLAN: The patient was discharged home with outpatient physical therapy. She will continue her Xarelto as instructed for DVT prophylaxis with the addition of pain medications and her preadmission medications will be continued at home. She will follow up with Dr. Dixon as an outpatient as scheduled. SAMMIE
== END 2017-06-24 19:30 | disposition home or self-care (01) | DRG 470 ==
LOC: C.ACU 06:57 → C.3E 08:32 → ENRESERV 12:25
PROVIDERS: ADMIT Orthopaedic Surgery Sports Medicine; ATTEND Orthopaedic Surgery Sports Medicine
PROC: 0SRD0J9 Replacement of Left Knee Joint with Synthetic Substitute, Cemented, Open Approach (ICD-10-PCS; principal; 2017-06-22 09:30)
DX: M17.12 Unilateral primary osteoarthritis, left knee (principal); Z68.43 Body mass index [BMI] 50.0-59.9, adult; G95.9 Disease of spinal cord, unspecified; E78.00 Pure hypercholesterolemia, unspecified; J45.909 Unspecified asthma, uncomplicated; E11.22 Type 2 diabetes mellitus with diabetic chronic kidney disease; E66.01 Morbid (severe) obesity due to excess calories; E78.5 Hyperlipidemia, unspecified; N18.2 Chronic kidney disease, stage 2 (mild); I12.9 Hypertensive chronic kidney disease with stage 1 through stage 4 chronic kidney disease, or unspecified chronic kidney disease; Z96.651 Presence of right artificial knee joint; I87.2 Venous insufficiency (chronic) (peripheral); E55.9 Vitamin D deficiency, unspecified; Z86.14 Personal history of Methicillin resistant Staphylococcus aureus infection; Z79.899 Other long term (current) drug therapy; Z79.84 Long term (current) use of oral hypoglycemic drugs; Z79.51 Long term (current) use of inhaled steroids